=== PATIENT | male | born 1990 | race Two or more races ===

== ENCOUNTER 2016-08-05 10:04 | Emergency (ER) | payer SELFPAY ==
[2016-08-05] MEDS ORDERED: SODIUM CHLORIDE 0.9% 1,000 ML ONE (11:14)
[2016-08-05] MEDS ORDERED: MECLIZINE HCL 25 MG TABLET ONE (11:15)
[2016-08-05 11:18] LABS: ABSOLUTE NEUTROPHIL COUNT 5.5 K/mm3 (1.8-7.7); BASO % 0.5 % (0.2-1.0); EOS % 0.5 % (0.9-2.9); HEMATOCRIT 50.3 % (32.0-52.0); HEMOGLOBIN 17.7 gm/l (14.0-18.0); IMM NEUT% 0.5 % (0-1); LYMPH # 2.5 (1.0-4.8); LYMPH % 28.1 % (15-45); MEAN CELL VOLUME 90.3 fl (80.0-94.0); MEAN CORPUSCULAR HEMOGLOBIN 31.8 pg (27.0-31.0); MEAN CORPUSCULAR HGB CONC 35.2 g/dl (33.0-37.0); MEAN PLATELET VOLUME 9.5 fl (7.4-10.4); MONO # 0.6 (0.0-0.8); MONO % 7.2 % (4-12); NEUT % 63.2 % (43-75); PLATELET COUNT 297 K/mm3 (130-400); RED CELL DISTRIBUTION WIDTH 11.9 % (11.5-14.5); URINE BILIRUBIN NEGATIVE (NEGATIVE); URINE BLOOD NEGATIVE (NEGATIVE); URINE GLUCOSE (UA) NEGATIVE (NEGATIVE); URINE LEUKOCYTE ESTERASE NEGATIVE (NEGATIVE); URINE NITRITE NEGATIVE (NEGATIVE); URINE PROTEIN NEGATIVE (NEGATIVE); URINE UROBILINOGEN NORMAL (0-1 mg/dl)
[2016-08-05 11:19] LABS: URINE APPEARANCE CLEAR; URINE COLOR YELLOW
[2016-08-05 11:49] LABS: ALB/GLOB RATIO 1.7 (>1.0); CALCIUM 9.7 mg/dL (8.6-10.3)
== END 2016-08-05 13:02 | disposition home or self-care (01) ==
LOC: ED 10:04
DX: R42 Dizziness and giddiness (principal)